=== PATIENT | female | born 2000 | race Hispanic/Latino ===

== ENCOUNTER 2024-05-03 22:06 | Emergency (ER) | payer SELFPAY ==
[2024-05-03 22:09] VITALS: BP 116/87
[2024-05-03 22:36] LABS: % Basophils 0.4 % (0-2); % Immature Granulocytes 0.3 % (0-0.5); % Lymphocytes 40.6 % (20.5-51.1); % Monocytes 11.5 % (1.7-9.3); % Neutrophils 44.2 % (42.2-75.2); Absolute Eosinophils 0.2 10^3/uL (0-0.7); Absolute Lymphocytes 3.2 10^3/uL (1.2-3.4); Absolute Monocytes 0.9 10^3/uL (0.1-0.6); Absolute Neutrophils 3.5 10^3/uL (1.4-6.5); Hematocrit 32.2 % (37.0-47.0); Hemoglobin 11.3 g/dL (12.0-16.0); Mean Corp Hgb Conc. 35.1 g/dL (33.0-37.0); Mean Corpuscular Hgb 27.6 pg (27.0-31.0); Mean Corpuscular Volume 78.7 fL (81.0-99.0); Mean Platelet Volume 8.8 fL (7.4-10.4); Nucleated Red Blood Cells % 0 %; Platelet Count 381 10^3/uL (130-400); Red Blood Cell Count 4.09 10^6/uL (4.20-5.40); Red Cell Dist. Width 13.6 % (11.5-14.5); Urine Albumin Negative (Neg - Trace); Urine Bilirubin Negative (Negative); Urine Character Clear (Clear); Urine Color Yellow; Urine Glucose Negative (Negative); Urine Ketone Negative (Negative); Urine Leukocyte Negative (Negative); Urine Nitrite Negative (Negative); Urine Occult Blood 1+ (Negative); Urine Urobilinogen Negative (Neg - 1+); White Blood Cell Count 7.9 10^3/uL (4.8-10.8)
[2024-05-03 22:46] LABS: HCG, Serum Qualitative Screen Positive; Urine Squamous Cell 0-2 /LPF (Few); Urine White Cell 0-2 /HPF (0-5)
[2024-05-03 22:47] LABS: Urine Bacteria Few (Negative)
[2024-05-03 22:50] LABS: ALT (SGPT) 23 U/L (0-35); AST (SGOT) 19 U/L (14-36); Albumin 3.6 g/dl (3.5-5.0); Alkaline Phosphatase 123 U/L (38-126); Blood Urea Nitrogen 13 mg/dl (7-17); Calcium 9.1 mg/dl (8.4-10.2); Carbon Dioxide 21 mmol/L (22-30); Chloride 103 mmol/L (98-107); Glucose 128 mg/dl (70-99); Potassium 3.8 mmol/L (3.5-5.1); Sodium 133 mmol/L (135-145); Total Bilirubin 0.5 mg/dl (0.2-1.3); Total Protein 6.4 g/dl (6.3-8.2); eGFR > 60.00
[2024-05-03 23:27] LABS: TSH Reflex To Free T4 < 0.02 uIU/ml (0.47-4.68)
--- NOTE | 2024-05-04 00:07 | ED.GENMED ---
History of Present Illness
General
Chief Complaint: Throat Problem
Source: patient
Exam Limitations: none
Time Seen by Provider: 05/03/24 23:43
History of Present Illness
History of Present Illness:
This is a 23 year old female that comes in with c/o a lump in her throat. States that her mom noticed this about a weeks ago. States that she didn't really noticed this until her mom said something and now it is bothering her. States that she has
been very hot and had some diarrhea. State that occasionally she was dizzy. Denies any fever, chills, chest pain, SOB, abd pain, nausea, vomiting, headache, urinary burning
Past History
Past History
ED Past Medical History: None; Negative Asthma, HTN, Hypercholesterolemia or NIDDM
ED Past Surgical History: Appendectomy
Social History
Tobacco: Non-smoker
Alcohol: None
Personal: Single
Living: with family
Review of Systems
Review of Systems
All Other Systems: ROS reviewed and negative except as documented in HPI and ROS
Constitutional: Reports no symptoms; Denies fever or chills
EENT: Reports other (Lump in the anterior neck)
Respiratory: Reports no symptoms; Denies cough or trouble breathing
Cardiac: Reports no symptoms; Denies chest pain
ABD/GI: Reports diarrhea; Denies abdominal pain, nausea or vomiting
: Reports no symptoms; Denies dysuria, frequency or urgency
Musculoskeletal: Reports no symptoms
Skin: Reports no symptoms
Neurological: Reports dizzy (occasional); Denies headache
Psychiatric: Reports no symptoms
Phy Exam
General Physical Exam
General Presentation: well appearing and no apparent distress
General age: appears stated age
General Skin: warm and dry
General Habitus: normal
General Mental: alert
General Hydration: appears well hydrated
ENT Exam
ENT Exam: TM's normal, pharynx normal and other (Thyroid enlarged, Possible goiter, Negative for any difficulty swallowing. )
Eye Exam
Eye Exam: EOMI
Cardiovascular Exam
Cardiovascular Exam: no edema, no murmur, normal peripheral pulses and tachycardia
Pulmonary Exam
Pulmonary Exam: lungs clear, no respiratory distress, no rales, chest non tender, no crackles, no rhonchi, no wheezing and no cough
Gastrointestinal Exam
Gastrointestinal Exam: normal bowel sounds, non tender, soft, no organomegaly, no pulsatile mass and non distended
Musculoskeletal Exam
Musculoskeletal Exam: full ROM and no edema
Skin Exam
Skin Exam: normal color, warm/dry, no rash and no petechia
Psychiatric Exam
Psychiatric Exam: normal mood/affect
Course
Orders/Labs/Results
Orders:
Orders
05/03/24 22:21
Test Result ONCE
05/03/24 22:30
Complete Blood Count/With Diff Urgent
Comprehensive Metabolic Panel Urgent
Free T4 Urgent
HCG, Serum Qualitative Screen Urgent
TSH Reflex To Free T4 Urgent
Urine Culture Reflexed from UA [Urinalysis Reflex To Culture] Urgent
Date Specimen was Collected: 05/03/24
Time Specimen was Collected: 22:24
Urine Microscopic Reflex Cult Urgent
Abnormal Lab Results
05/03/24
22:30
RBC 4.09 L 10^6/uL
(4.20-5.40)
Hgb 11.3 L g/dL
(12.0-16.0)
Hct 32.2 L %
(37.0-47.0)
MCV 78.7 L fL
(81.0-99.0)
Absolute Monos (auto) 0.9 H 10^3/uL
(0.1-0.6)
Monocytes % 11.5 H %
(1.7-9.3)
Sodium 133 L mmol/L
(135-145)
Carbon Dioxide 21 L mmol/L
(22-30)
Creatinine 0.3 L mg/dL
(0.6-1.0)
Glucose 128 H mg/dl
(70-99)
TSH (Reflex) < 0.02 L uIU/ml
(0.47-4.68)
Ur Occult Blood Reflex 1+ A
(Negative)
Urine RBC 11-15 A /HPF
(0-2)
Urine Bacteria (Reflex) Few A
(Negative)
05/03/24 22:30
05/03/24 22:30
H/H slighlty low. Sodium slightlylow Cr low. carbon dioxide slightly low. Glucose nonfasting. TSH very low (Hyperthyroidism), Urine negative for infection. HCG positive.
Vital Signs
Initial and Last Documented VS:
Initial Vital Signs
Temp Pulse Resp BP Pulse Ox
98.4 F 103 20 116/87 100
05/03/24 22:09 05/03/24 22:09 05/03/24 22:09 05/03/24 22:09 05/03/24 22:09
Last Documented Vital Signs
Temp Pulse Resp BP Pulse Ox
98.4 F 103 20 116/87 98
05/03/24 22:09 05/03/24 22:09 05/03/24 22:09 05/03/24 22:09 05/03/24 22:09
MDM/Problems Addressed
Differential Diagnosis Includes:
Thyroid goiter, Thyroid cancer
MDM/Problems Addressed:
This is a 23 year old female that comes in with c/o an anterior lump in her throat. States that her mom noticed this a week ago.
Explained to patient that her blood work shows that she is . Patient was unaware of this. Also notified patient that her Thyroid function is very low which indicates Hyperthyroidism. There may also be a goiter of the Thyroid. Explained that
she will need to have an out patient Ultrasound to assess her Thyroid. Patient can follow up in the Clinic or see an international account representative. Patent to return with any concerns.
Chronic conditions affecting care:
NA
Acute Exacerbation and/or Progression of Chronic Illness:
NA
*Pulse Oximetry
Patient hypoxic: no
*EKG
Interpreted by ED Provider?: NA
Rate: EKG- N/A
*Automobile Or Truck Rental Dispatcher Interpretation
Rate: Automobile Or Truck Rental Dispatcher- N/A
*Critical Care Note
Total Time (30-74mins, 75-104mins- exclusive of procedures): Not Applicable
ED Attending Note
-
Portions of this chart may have been created with voice recognition software.� Occasional wrong word or��sound alike� substitutions may have occurred due to the inherent limitations of voice recognition software.
Discharge Plan
Departure
Patient Disposition: Home (Routine Discharge)
Date of Disposition: 05/04/24
Time of Disposition: 00:15
Patient with high blood pressure during this ER visit?: No
Condition: Good
Covid-19: Not Applicable
Discharge Problem:
Hyperthyroidism, Possible thyroid goiter
Instructions: Hyperthyroidism (overactive thyroid)
Referrals:
[facility] [Outside] - Follow up in 2-3 days
NONE,* [Family Provider] -
Activity Restrictions/Additional Instructions:
As discussed, your blood work shows that you are . You also have an over active Thyroid. This will need further evaluation with an Ultrasound of the Thyroid. You will need to follow up in the clinic for further evaluation and treatment.
Please call them tomorrow and set up an appointment to be seen and a possible out patient ultrasound of the Thyroid. Please also follow up with the CLOCK REPAIRER for your . IF YOU HAVE ANY OTHER CONCERNS PLEASE RETURN TO THE EMERGENCY ROOM.
Interventions
Interventions:
*Risk Screen - Suicide Last Done: 05/03/24 22:09
*General Assessment Last Done: 05/03/24 22:09
*Neglect/Abuse Screening Last Done: 05/03/24 22:09
ED- Fall Risk Assessment Last Done: 05/03/24 22:09
*ED COVID-19 Vaccine History Last Done: 05/03/24 22:09
ED-EENT Assessment Last Done: 05/03/24 23:30
ED- Pulmonary Assessment Last Done: 05/03/24 23:30
Discharge Date and Time
Print Language: SOMALI
[2024-05-04 00:15] LABS: Free T4 > 6.99 ng/dl (0.78-2.19)
[2024-05-04 00:24] VITALS: BP 143/76
== END 2024-05-04 00:25 | disposition home or self-care (01) ==
LOC: EMR 22:06
PROVIDERS: EMERGENCY PHYSICIAN Student in an Organized Health Care Education/Training Program
DX: E05.90 Thyrotoxicosis, unspecified without thyrotoxic crisis or storm (principal); Z33.1 Pregnant state, incidental
CPT/HCPCS: 99283; 80053; 81003; 81015; 84439; 84443; 84703; 85025

== ENCOUNTER 2024-06-06 13:49 | Emergency (ER) | payer SELFPAY ==
[2024-06-06 13:56] VITALS: BP 141/109
[2024-06-06 14:26] LABS: % Basophils 0.2 % (0-2); % Eosinophils 1.7 % (0-6); % Immature Granulocytes 0.3 % (0-0.5); % Lymphocytes 28.1 % (20.5-51.1); % Monocytes 9.1 % (1.7-9.3); % Neutrophils 60.6 % (42.2-75.2); Absolute Eosinophils 0.2 10^3/uL (0-0.7); Absolute Lymphocytes 3.1 10^3/uL (1.2-3.4); Absolute Neutrophils 6.7 10^3/uL (1.4-6.5); Hematocrit 32.6 % (37.0-47.0); Hemoglobin 11.5 g/dL (12.0-16.0); Mean Corp Hgb Conc. 35.3 g/dL (33.0-37.0); Mean Corpuscular Hgb 27.7 pg (27.0-31.0); Mean Corpuscular Volume 78.6 fL (81.0-99.0); Mean Platelet Volume 8.9 fL (7.4-10.4); Nucleated Red Blood Cells % 0 %; Platelet Count 351 10^3/uL (130-400); Red Blood Cell Count 4.15 10^6/uL (4.20-5.40); Red Cell Dist. Width 13.3 % (11.5-14.5)
[2024-06-06 14:45] LABS: ALT (SGPT) 20 U/L (0-35); AST (SGOT) 18 U/L (14-36); Albumin 4.1 g/dl (3.5-5.0); Alkaline Phosphatase 122 U/L (38-126); Blood Urea Nitrogen 14 mg/dl (7-17); Calcium 9.4 mg/dl (8.4-10.2); Carbon Dioxide 21 mmol/L (22-30); Chloride 102 mmol/L (98-107); Glucose 124 mg/dl (70-99); Sodium 135 mmol/L (135-145); Total Bilirubin 0.9 mg/dl (0.2-1.3); Total Protein 7.3 g/dl (6.3-8.2); eGFR > 60.00
--- NOTE | 2024-06-06 20:23 | ED.GENMED ---
History of Present Illness
General
Chief Complaint: Problems
Source: patient
Time Seen by Provider: 06/06/24 18:00
History of Present Illness
History of Present Illness:
23-year-old female G6, P1, 4 miscarriages currently believed to be approximately 6 weeks based off of last menstrual period being in April presenting to the emergency department for evaluation of vaginal bleeding/spotting that began 3
days ago, has gotten slightly worse today prompting her to come to the ER for further evaluation. Patient does endorse lower abdominal and describes the bleeding to initially be a light spotting but now more like a very light menstrual period. She
denies any back or flank pain, urinary frequency/urgency/dysuria. Patient notes she recently moved to the area with her significant other and currently does not have insurance or an INTERACTIVE DEVELOPER to follow-up with.
Past History
Past History
ED Past Medical History: None; Negative Asthma, HTN, Hypercholesterolemia or NIDDM
ED Past Surgical History: Appendectomy
Social History
Tobacco: Non-smoker
Alcohol: None
Drug: None
Personal: Single
Living: with family
Review of Systems
Review of Systems
All Other Systems: ROS reviewed and negative except as documented in HPI and ROS
Phy Exam
Physical Exam
Physical Exam:
GENERAL: Alert , in no apparent distress
EYE: clear conjunctiva b/l
HEAD: NCAT
ENT: o/p clr, mmm.
ABDOMEN: Soft, without focal tenderness, no r/g, no cvat
NEUROLOGICAL: Alert and oriented
SKIN: Warm and dry, skin intact.
MUSCULOSKELETAL: No edema, well perfused.
PSYCH: Normal and appropriate interaction.
Scores
Heart Failure Risk
Heart Failure Risk Score: Not Applicable
Heart Score for Chest Pain Patients
STEMI patient?: Not applicable
Withdrawal Assessment of Alcohol
Withdrawal Assessment Completed?: Not applicable
Course
Orders/Labs/Results
Orders:
Orders
06/06/24 14:06
Complete Blood Count/With Diff Urgent
Comprehensive Metabolic Panel Urgent
HCG, Beta Quantitative [Beta HCG Quantitative] Urgent
Is this a screen?: No
06/06/24 17:37
US W Transvaginal Urgent
Comment:
Reason For Exam: , bleeding
06/06/24 18:05
ABO [Blood Group&Type] Urgent
06/06/24 18:18
ABO2 Urgent
BBK Wristband Number:
Associate notified that ABO2 has been ordered:
Date: 06/06/24
Time: 18:18
Phlebotomist Associate ID: [id number]
Abnormal Lab Results
06/06/24
14:06
WBC 11.0 H 10^3/uL
(4.8-10.8)
RBC 4.15 L 10^6/uL
(4.20-5.40)
Hgb 11.5 L g/dL
(12.0-16.0)
Hct 32.6 L %
(37.0-47.0)
MCV 78.6 L fL
(81.0-99.0)
Absolute Neuts (auto) 6.7 H 10^3/uL
(1.4-6.5)
Absolute Monos (auto) 1.0 H 10^3/uL
(0.1-0.6)
Carbon Dioxide 21 L mmol/L
(22-30)
Creatinine 0.2 L mg/dL
(0.6-1.0)
Glucose 124 H mg/dl
(70-99)
06/06/24 14:06
06/06/24 14:06
Vital Signs
Initial and Last Documented VS:
Initial Vital Signs
Temp Pulse Resp BP Pulse Ox
98.0 F 88 16 141/109 100
06/06/24 13:56 06/06/24 13:56 06/06/24 13:56 06/06/24 13:56 06/06/24 13:56
Last Documented Vital Signs
Temp Pulse Resp BP Pulse Ox
98.0 F 84 16 130/61 99
06/06/24 13:56 06/06/24 20:30 06/06/24 20:30 06/06/24 20:30 06/06/24 20:30
Information
Weeks gestation: Weeks: (6 weeks and 5 days)
Location: Location: (Intrauterine )
MDM/Problems Addressed
Differential Diagnosis Includes:
Threatened , ectopic , incomplete , completed
MDM/Problems Addressed:
23-year-old female presenting to the emergency department for 3 days of light spotting, today bleeding became a little bit more heavier. Estimates herself to be approximately 6 weeks based off her last menstrual period. Labs initiated in
triage show a hemoglobin of 11.5, unremarkable chemistry and an hCG of just over 11,000. Ultrasound ordered to further evaluate source of bleeding. Disposition pending
*Radiology
Radiology exam reviewed: radiology read reviewed
*Pulse Oximetry
Patient hypoxic: no
*Critical Care Note
Total Time (30-74mins, 75-104mins- exclusive of procedures): Not Applicable
Patient Management
Escalation/DeEscalation of care consider admission/obs:
Patient's ultrasound shows a single intrauterine but no heartbeat identified. Estimated to be approximately 6 weeks . Based off the ultrasound it was recommended that patient have a repeat ultrasound in 1 to 2 weeks. Given she
does not have an INTERACTIVE DEVELOPER and her early stage of , will have the patient return in 48 hours for repeat hCG level. She was advised on return precautions to the emergency department. Stable for discharge home.
ED Attending Note
-
Portions of this chart may have been created with voice recognition software.� Occasional wrong word or��sound alike� substitutions may have occurred due to the inherent limitations of voice recognition software.
Discharge Plan
Departure
Patient Disposition: Home (Routine Discharge)
Date of Disposition: 06/06/24
Time of Disposition: 20:24
Patient with high blood pressure during this ER visit?: Yes
Discharge Problem:
, threatened
Instructions: Threatened Miscarriage (DC)
Activity Restrictions/Additional Instructions:
Please return to ER in 48 hours for repeat hormone level
Interventions
Interventions:
*Risk Screen - Suicide Last Done: 06/06/24 13:56
*General Assessment Last Done: 06/06/24 13:56
*Neglect/Abuse Screening Last Done: 06/06/24 13:56
*ED COVID-19 Vaccine History Last Done: 06/06/24 13:56
*Nursing Disposition Last Done: 06/06/24 20:48
ED-Female Genitourinary Assessment Last Done: 06/06/24 18:10
Discharge Date and Time
Discharge Date/Time: 06/06/24 20:49
Print Language: IVORIAN
[2024-06-06 20:30] VITALS: BP 130/61
== END 2024-06-06 20:49 | disposition home or self-care (01) ==
LOC: EMR 13:49
PROVIDERS: Emergency Medicine; EMERGENCY PHYSICIAN Student in an Organized Health Care Education/Training Program
DX: O20.0 Threatened abortion (principal); Z59.71 Insufficient health insurance coverage; Z3A.01 Less than 8 weeks gestation of pregnancy
CPT/HCPCS: 99284; 76801; 76817; 80053; 84702; 85025; 86900; 86901